=== PATIENT | male | born 1955 | race Caucasian/White ===

== ENCOUNTER 2022-06-08 18:47 | Emergency (ER) | payer BC, SELFPAY ==
[2022-06-08] VITALS (7 sets, daily range): BP systolic 162–185; BP diastolic 88–94; PULSE 85–104; RESP 15–20; TEMP 37.4; O2SAT 96–98
--- NOTE | 2022-06-08 19:17 | ED.ALLEREA ---
HPI - Allergic Reaction General Chief complaint: Allergic Reaction Stated complaint: andioedema Time Seen by Provider: 06/08/22 18:53 History of Present Illness HPI narrative: 67-year-old male presenting the emergency department for evaluation of some tongue swelling that started about 6 PM tonight. Patient is noticed he did have some swelling of his tongue but denies any other facial swelling or rashes. Patient did take Benadryl this has since improved his symptoms. Patient is not on lisinopril and denies any new medications. Patient denies any difficulty breathing or swallowing. Patient has no prior history of angioedema Related Data Allergies Allergy/AdvReac Type Severity Reaction Status Date / Time No Known Allergies Allergy Verified 06/08/22 19:06 Review of Systems Review of Systems: CONSTITUTIONAL: Denies fever, chills, or sweats. EYES: Denies visual changes, redness, or discharge. ENT: See HPI CARDIOVASCULAR: Denies chest pain, palpitations, or edema. RESPIRATORY: Denies cough or dyspnea. GASTROINTESTINAL: Denies abdominal pain, nausea, vomiting, or diarrhea. GENITOURINARY: Denies dysuria or hematuria. SKIN: Denies rash or itching. MUSCULOSKELETAL: Denies back pain, joint pain, or myalgia. NEUROLOGIC: Denies headache, numbness, or weakness. Exam Narrative: APPEARANCE: Well appearing, no pain, no distress, well-nourished. HEAD: normocephalic, atraumatic. EYES: PERRLA/EOMI, conjunctivae clear. NOSE: Normal no drainage EARS:TMS clear with good light reflex. THROAT: Pharynx clear, no exudate. Moderate tongue swelling. Patient has a Mallampati of 2 NECK: Supple. No adenopathy, no masses. RESPIRATORY: Airway patent, respirations nonlabored. Clear to auscultation bilaterally, no rales, rhonchi, wheezing. CARDIOVASCULAR: Regular rate and rhythm without murmurs rubs or gallops. ABDOMINAL: Soft, nontender, nondistended, normal bowel sounds MUSCULOSKELETAL: Moves all extremities. Strength/ROM intact, No edema, No calf tenderness. NEURO: Alert. Cranial nerves II through XII intact. Grossly intact SKIN: Warm, dry. Normal Color PSYCHIATRIC: Normal affect/mood. Course Course Emergency Course: Prior to arrival patient states he felt that his tongue swelling was improving. During his stay in the emergency department patient reports his swelling further improved. Patient took Benadryl at home but was treated with additional Benadryl famotidine and Solu-Medrol in the ED. Patient and family were updated on the results of the work-up and treatment plan and on reasons to return to the emergency department. All questions and concerns were addressed. Vital Signs Vital signs: Vital Signs Temperature 99.4 F 06/08/22 18:58 Pulse Rate 104 H 06/08/22 18:58 Respiratory Rate 20 06/08/22 18:58 Blood Pressure 185/94 H 06/08/22 18:58 Pulse Oximetry 97 06/08/22 18:58 Oxygen Delivery Room Air 06/08/22 18:58 Temperature 99.4 F 06/08/22 18:58 Pulse Rate 87 06/08/22 21:37 Respiratory Rate 19 06/08/22 21:37 Blood Pressure 162/88 H 06/08/22 21:37 Pulse Oximetry 97 06/08/22 21:37 Oxygen Delivery Room Air 06/08/22 18:58 MDM - Allergic Reaction Lab Data Result diagrams: 06/08/22 19:30 06/08/22 19:30 Labs: Lab Results 06/08/22 06/08/22 Range/Units 19:30 19:30 WBC 6.4 (4.5-10.0) K/mm3 RBC 4.66 (4.6-6.20) M/mm3 Hgb 14.7 (14.0-18.0) g/dL Hct 42.9 (42.0-52.0) % MCV 92.1 (80-100) fl MCH 31.5 (26-34) pg MCHC 34.3 (32-36) g/dl RDW 12.5 (11.5-14.5) % Plt Count 181 (150-375) k/mm3 MPV 10.9 H (7.4-10.4) fl Immature Gran % (Auto) 0.2 (0-0.5) % Neut % (Auto) 80.0 H (45.5-73.1) % Lymph % (Auto) 5.9 L (18.3-44.2) % [place] % (Auto) 12.9 H (2.6-8.5) % Eos % (Auto) 0.5 (0-4.4) % Baso % (Auto) 0.5 (0.2-1.2) % Lymph # (Auto) 0.38 L (0.9-3.2) K/mm3 [place] # (Auto) 0.8 H (0.1-0.6) K/mm3 Eos # (Auto) 0.0 (0
[2022-06-08] MEDS: methylPREDNISolone SOD SUCC 125 MG VIAL IV PUSH (19:20)
[2022-06-08] MEDS: diphenhydrAMINE HCl INJ 50 MG/ML VIAL 25 MG IV PUSH (19:20)
[2022-06-08] MEDS: FAMOTIDINE 20 MG/2 ML VIAL IV PUSH (19:20)
[2022-06-08 19:35] LABS: Basophils Percent Auto 0.5 % (0.2-1.2); Eosinophils Percent Auto 0.5 % (0-4.4); Hematocrit 42.9 % (42.0-52.0); Hemoglobin 14.7 g/dL (14.0-18.0); Immature Granulocyte Absolute 0.01 K/mm3 (0.00-0.031); Immature Granulocyte Percent A 0.2 % (0-0.5); Lymphocytes Absolute Auto 0.38 K/mm3 (0.9-3.2); Lymphocytes Percent Auto 5.9 % (18.3-44.2); Mean Corpuscular HGB Conc 34.3 g/dl (32-36); Mean Corpuscular Hemoglobin 31.5 pg (26-34); Mean Corpuscular Volume 92.1 fl (80-100); Mean Platelet Volume 10.9 fl (7.4-10.4); Monocytes Absolute Auto 0.8 K/mm3 (0.1-0.6); Monocytes Percent Auto 12.9 % (2.6-8.5); Neutrophils Absolute Auto 5.2 K/mm3 (1.3-6.7); Platelet Count Result 181 k/mm3 (150-375); Red Blood Count 4.66 M/mm3 (4.6-6.20); Red Cell Distribution Width 12.5 % (11.5-14.5); White Blood Count 6.4 K/mm3 (4.5-10.0)
[2022-06-08 19:47] LABS: Alanine Aminotransferase 22 U/L (6-50); Albumin Level 4.4 g/dL (3.5-5.1); Alkaline Phosphatase 54 U/L (38-126); Anion Gap 11 mmol/L (8-16); Aspartate Amino Transferase 25 U/L (17-59); Bilirubin,Total 0.8 mg/dL (0.2-1.3); Blood Urea Nitrogen 12 mg/dL (9-20); Calcium 8.7 mg/dL (8.4-10.2); Carbon Dioxide 25 mmol/L (22-30); Chloride 99 mmol/L (98-107); Estimated CRCL calculation 98 ml/min; Estimated Glomerular Filt Rate > 60; Glucose 99 mg/dL (65-110); Potassium 3.2 mmol/L (3.4-5.0); Sodium 135 mmol/L (137-145)
== END 2022-06-08 21:37 | disposition home or self-care (01) ==
PROVIDERS: Emergency Provider Emergency Medicine
DX: T78.40XA Allergy, unspecified, initial encounter (principal); R22.0 Localized swelling, mass and lump, head
CPT/HCPCS: 36415; 80053; 85025; 96374; 96375; 99284; J1200; J2930